=== PATIENT | female | born 1965 | race Caucasian/White ===

== ENCOUNTER 2020-09-03 09:44 | Emergency (ER) | payer OTHER ==
--- NOTE | 2020-09-03 10:02 | EDM.PDOC ---
ED HPI GENERAL MEDICAL PROBLEM - General Stated Complaint: FELL ON THE ICE Time Seen by Provider: 09/03/20 09:44 Source of Information: Reports: Patient, EMS History Limitations: Reports: No Limitations - History of Present Illness INITIAL COMMENTS - FREE TEXT/NARRATIVE: Pt. presents to ER with complaints of headache, lightheadedness, fatigue, and tremor post fall on ice. Pt. states that she was walking on the ice at [employer] [facility] when she slipped, falling backward and striking her head directly onto the concrete. She does not think she fully lost consciousness, but states that she "saw stars" and was briefly incapacitated after striking her head. She has not been experiencing any nausea or vomiting. She also complains of some diffuse cervical spine pain, both midline and laterally. EMS was summoned. She was transported to ER with c-collar in place. Pt. denies any numbness/tingling in extremities/torso. She was ambulatory at scene. No speech problems. EMS states that she has been behaving appropriately. She does complain of some mild photosensitivity. Onset Date: 09/03/20 Location: Reports: Head, Neck Quality: Reports: Ache, Throbbing Severity: Moderate Posterior Head Pain Score (Numeric/FACES): 6 - Related Data Allergies Allergy/AdvReac Type Severity Reaction Status Date / Time No Known Allergies Allergy Verified 09/03/20 10:45 Home Meds: Home Meds Calcium Carbonate/Vitamin D3 [Calcium 600 + Vit D 400] 1 tab PO DAILY 12/10/14 [History] Fluticasone Propionate [Flonase] 1 spray NASBOTH DAILY 12/10/14 [History] Vit No.130/Iron/Folic [ Vitamins] 1 tab PO DAILY 12/10/14 [History] ED ROS GENERAL - Review of Systems Review Of Systems: See Below Constitutional: Reports: No Symptoms HEENT: Reports: No Symptoms, Vertigo. Denies: Eye Pain, Hearing Loss, Vision Change Respiratory: Reports: No Symptoms Cardiovascular: Reports: No Symptoms Endocrine: Reports: No Symptoms GI/Abdominal: Reports: No Symptoms : Reports: No Symptoms Musculoskeletal: Reports: Neck Pain Skin: Reports: No Symptoms Neurological: Reports: Dizziness, Headache, Tremors. Denies: Confusion, Numbness, Paresthesia, Seizure, Syncope, Tingling, Trouble Speaking, Difficulty Walking, Weakness, Change in Speech, Gait Disturbance Psychiatric: Reports: No Symptoms Hematologic/Lymphatic: Reports: No Symptoms Immunologic: Reports: No Symptoms ED EXAM, GENERAL - Physical Exam Exam: See Below Exam Limited By: No Limitations General Appearance: Alert, WD/WN, No Apparent Distress Eye Exam: Bilateral Eye: EOMI, PERRL Nose: Normal Inspection, Normal Mucosa, No Blood Throat/Mouth: Normal Inspection, Normal Lips, Normal Teeth, Normal Oropharynx, Normal Voice, No Airway Compromise Head: Atraumatic, Normocephalic Neck: Normal Inspection, Supple, Non-Tender, Full Range of Motion Respiratory/Chest: No Respiratory Distress, Lungs Clear, Normal Breath Sounds, No Accessory Muscle Use, Chest Non-Tender Cardiovascular: Normal Peripheral Pulses, Regular Rate, Rhythm, No Edema, No JVD, No Murmur, No Rub Peripheral Pulses: 4+: Radial (L) GI/Abdominal: Soft, Non-Tender, No Distention, No Mass (Female) Exam: Deferred Rectal (Female) Exam: Deferred Back Exam: Normal Inspection, Full Range of Motion Extremities: Normal Inspection, Normal Range of Motion, Non-Tender, No Pedal Edema, Normal Capillary Refill Neurological: Alert, Oriented, CN II-XII Intact, Normal Cognition, Normal Gait, Normal Reflexes, No Motor/Sensory Deficits, Slow to Respond, Memory Loss Recent Events. No: Abnormal Gait Psychiatric: Normal Affect, Normal Mood Skin Exam: Warm, Dry, Intact, Normal Color, No Rash Lymphatic: No Adenopathy Course - Vital Signs Last Recorded V/S: Last Vital Signs Temp 36.6 C 09/03/20 09:50 Pulse 67 09/03/20 09:50 Resp 16 09/03/20 09:50 BP 147/87 H 09/03/20 09:50 Pulse Ox 100 09/03/20 09:50 - Radiology Interpretation Free Text/Narrative:: CT cervical spine reveals diffuse chronic disc disease/multi-level spondylosis. No acute trauma. CT brain negative for acute trauma. She does have evidence paranasal sinusitis, primarily of the sphenoid and ethmoid sinuses. No other acute pathology noted. Departure - Departure Time of Disposition: 11:01 Disposition: Home, Self-Care 01 Clinical Impression: Concussion injury of brain, Strain of neck muscle, Sinusitis - Discharge Information Instructions: Head Injury, Adult, Sinusitis, Adult, [id number], Cervical Sprain, [id number], Sulfamethoxazole; Trimethoprim, SMX-TMP tablets, Probiotics Referrals: Dottie Arango PA-C [Primary Care Provider] - Forms: ED Department Discharge Additional Instructions: Home to rest. Off work today. Tylenol and ibuprofen as needed for pain. No driving today and tomorrow. Minimize "screen time" (computer, phone, TV use), reading, or highly cognitive activities. It is important that your brain is allowed to rest as much as possible. For your neck pain, I would use heat, as most people do not tolerate ice in this area. Bactrim DS 1 twice daily for 10 days. Sepsis Event Note (ED) - Focused Exam Vital Signs: Vital Signs Temp Pulse Resp BP Pulse Ox 09/03/20 09:50 36.6 C 67 16 147/87 H 100 - Problem List Review Problem List Initiated/Reviewed/Updated: Yes - Assessment/Plan Plan: Home to rest. Off work today. Tylenol and ibuprofen as needed for pain. No driving today and tomorrow. Minimize "screen time" (computer, phone, TV use), reading, or highly cognitive activities. It is important that your brain is allowed to rest as much as possible. For your neck pain, I would use heat, as most people do not tolerate ice in this area. Bactrim DS 1 twice daily for 10 days.
--- NOTE | 2020-09-03 10:42 | CT ---
[id number] CT/CT Head WO IV EXAM: CT Head WO IV CLINICAL DATA: FALL, STRUCK HEAD,UNKNOWN LOC. COMPARISON STUDY: None FINDINGS: No intracranial hemorrhage, extra-axial fluid collection, mass, or acute ischemia. No hydrocephalus. No calvarial fracture. Paranasal sinus mucosal thickening consistent with sinusitis. Findings are most prominent in the ethmoid and sphenoid sinuses. Mastoid air cells are clear. IMPRESSION: Normal examination of the brain. Paranasal sinusitis. Reji Porras MD 09/03/20 1041 Thank you for allowing us to participate in the care of your patient.
--- NOTE | 2020-09-03 10:45 | CT ---
[id number] CT/CT Cervical Spine WO IV EXAM: NONCONTRAST CERVICAL SPINE CT INDICATION: FALL. COMPARISON: None. DISCUSSION: 4 mm spondylolisthesis C4-C5 likely diffuse bilateral facet arthropathy. Mild retrolisthesis C3-C4. No fracture or suspicious osseous lesion is identified. Moderate to advanced disc degeneration C5-C6 and C6-C7 with mild to moderate changes at the remaining disc levels. Moderate to advanced facet arthropathy on the left C3-C4 through C6-C7. Milder changes at the remaining facet joints throughout the cervical spine. Scarring and emphysematous changes are noted in the lung apices. IMPRESSION: 1. No evidence of acute cervical spine trauma. 2. Multilevel cervical spondylosis. Corey Buchanan MD 09/03/20 1043 Thank you for allowing us to participate in the care of your patient.
[2020-09-03 10:53] VITALS: BP 147/87; PULSE 67
== END 2020-09-03 11:15 | disposition home or self-care (01) ==
LOC: VM.ED 09:44
DX: S06.0X9A Concussion with loss of consciousness of unspecified duration, initial encounter (principal); S16.1XXA Strain of muscle, fascia and tendon at neck level, initial encounter; J32.9 Chronic sinusitis, unspecified; W00.0XXA Fall on same level due to ice and snow, initial encounter; Y93.01 Activity, walking, marching and hiking
CPT/HCPCS: 70450; 72125; 99283; 99284-25